=== PATIENT | female | born 1985 | race Caucasian/White ===

== ENCOUNTER 2018-10-20 11:05 | Day surgery (SDC) | payer OTHER ==
[~2018-10-20] VITALS: Ht 175.3 cm; Wt 67.6 kg
[~2018-10-20 11:05] MED LIST: GABAPENTIN DAILY
[2018-10-20 13:00] VITALS: Ht 175.3 cm; Wt 67.6 kg
[2018-10-20] MEDS ORDERED: MIDAZOLAM 1 MG/ML 2 ML INJ ONE (13:21)
[2018-10-20] MEDS ORDERED: LORAZEPAM 2 MG INJ IV ONE (13:30)
--- NOTE | 2018-10-20 13:34 | PREAC ---
Date/Time of Note Date/Time of Note DATE: 10/20/18 TIME: 13:31 Anesthesia Eval and Record Evaluation Time Pre-Procedure Interview DATE: 10/20/18 TIME: 13:31 Age 33 Sex female NPO: 8 hrs Preoperative diagnosis Abdominal Pain, CBH Planned procedure Colonoscopy Past Medical History Past Medical History: Includes Neuro: Other (PTSD, Hx of Seisure) Surgery & Anesthesia Issues No known issue Meds Anticoagulation: No Beta Jeffery within 24 hr: No Reason Beta Jeffery not given: Pt. not on B-Jeffery Reported Medications [Gabapentin Daily] No Conflict Check 10/20/18 Meds reviewed: Yes Allergies Allergies Reviewed: Yes Labs/Studies Labs Reviewed: Reviewed by anesthesiologist test: N/A (S/P Hysterectomy 2016) Studies: ECG (n/a), CXR (n/a) Pre-procedure Exam Airway: Adequate mouth opening, Adequate thyromental dist Mallampati: Mallampati II Teeth: Normal Lung: Normal Heart: Normal ASA Physical Status ASA physical status: 2 Emergency: None Planned Anesthetic General/MAC: MAC Planned Pain Management Parenteral pain med Pre-operative Attestations Prior to commencing anesthesia and surgery, the patient was re-evaluated, there was verification of: *The patient's identity *The results of appropriate recent lab work and preoperative vital signs *The above evaluation not changing prior to induction *Anesthetic plan, risk benefits, alternative and complications discussed with patient/family; questions answered; patient/family understands, accepts and wishes to proceed. LINDSAY FOX MD Oct 20, 2018 13:34
[2018-10-20 13:35] VITALS: BP 128/85; PULSE 70; RESP 26
[2018-10-20] MEDS ORDERED: PROPOFOL 40 ML ONE (13:46)
--- NOTE | 2018-10-20 13:56 | PAC ---
Date/Time of Note Date/Time of Note DATE: 10/20/18 TIME: 13:56 Post-Anesthesia Notes Post-Anesthesia Note Last documented vital signs T: 98.0 Activity: WNL Respiratory function: WNL Cardiovascular function: WNL Mental status: Baseline Pain reasonably controlled: Yes Hydration appropriate: Yes Nausea/Vomiting absent: Yes LINDSAY FOX MD Oct 20, 2018 13:56
[2018-10-20 14:22] VITALS: BP 105/61; RESP 18
== END 2018-10-20 16:45 | disposition home or self-care (01) ==
LOC: GIL 11:05
PROVIDERS: ATTEND Internal Medicine
DX: Z86.010 Personal history of colon polyps (principal); K64.4 Residual hemorrhoidal skin tags
CPT/HCPCS: 45378; J2060; J2250; Z7610